=== PATIENT | male | born 1995 | race Asian ===

== ENCOUNTER 2018-12-03 15:14 | Emergency (ER) | payer OTHER ==
[~2018-12-03] VITALS: Ht 167.6 cm; Wt 59.1 kg
[2018-12-03] MEDS ORDERED: CEPH500 PO (15:32)
[2018-12-03] MEDS ORDERED: LORA10TA7 PO (15:32)
[2018-12-03 17:09] VITALS: BP 136/87
== END 2018-12-03 17:13 | disposition home or self-care (01) ==
LOC: EMS 15:17
DX: L01.00 Impetigo, unspecified (principal); J45.909 Unspecified asthma, uncomplicated